=== PATIENT | male | born 1945 | race Asian ===

== ENCOUNTER 2016-12-17 17:15 | Inpatient (IN) | payer OTHER ==
[~2016-12-17] VITALS: Ht 170.2 cm; Wt 78.9 kg
[2016-12-17 21:25] LABS: BASOPHIL % 0.3 % (0-2); PLATELET COUNT 236 x10^3mcL (130-400); RED CELL DISTRIBUTION WIDTH 13.7 % (11.5-14.5)
[2016-12-17 21:33] LABS: ALKALINE PHOSPHATASE 125 U/L (46-116); ALT/SGPT 22 U/L (16-63); AST/SGOT 32 U/L (15-37); BILIRUBIN TOTAL 0.73 mg/dL (0.20-1.00); CALCIUM 9.7 mg/dL (8.5-10.1); CARBON DIOXIDE 29.4 mmol/L (21-32); CHLORIDE SERUM 92 mmol/L (98-107); GLUCOSE SERUM 121 mg/dL (74-106); POTASSIUM SERUM 5.5 mmol/L (3.5-5.1); SODIUM SERUM 131 mmol/L (136-145)
[2016-12-17 21:36] LABS: TOTAL PROTEIN, SERUM 8.8 g/dL (6.4-8.2)
[2016-12-17 21:37] LABS: CREATININE SERUM 4.4 mg/dL (0.7-1.3)
[2016-12-18 02:12] LABS: PHOSPHOROUS 5.1 mg/dL (2.5-4.9)
[2016-12-18 02:31] LABS: FREE T4 1.08 ng/dL (0.76-1.46); FREE THYROXINE INDEX 2.6 ug/dL (1.4-4.5); T4(THYROXINE) 7.3 ug/dL (4.7-13.3)
[2016-12-18 02:36] VITALS: BP 148/94
[2016-12-18 04:18] LABS: T3 TOTAL 0.36 ng/mL
[2016-12-18 06:25] VITALS: BP 116/72
[2016-12-18 06:41] LABS: microscopic required? YES; urine erythrocyte 3+ (NEGATIVE)
[2016-12-18 06:57] LABS: AMPHETAMINE QUAL UR NONE DETECTED (NEG <=1000)
[2016-12-18 07:17] LABS: BASOPHIL % 0.1 % (0-2); PLATELET COUNT 226 x10^3mcL (130-400); RED CELL DISTRIBUTION WIDTH 13.8 % (11.5-14.5)
[2016-12-18 07:50] LABS: CALCIUM 9.6 mg/dL (8.5-10.1); CARBON DIOXIDE 22.8 mmol/L (21-32); CHLORIDE SERUM 92 mmol/L (98-107); GLUCOSE SERUM 165 mg/dL (74-106); POTASSIUM SERUM 5.1 mmol/L (3.5-5.1); SODIUM SERUM 129 mmol/L (136-145)
[2016-12-18 07:57] LABS: CREATININE SERUM 4.2 mg/dL (0.7-1.3)
[2016-12-18 09:33] VITALS: BP 122/72
[2016-12-18 13:34] VITALS: BP 127/82
[2016-12-18 17:27] LABS: CALCIUM 8.8 mg/dL (8.5-10.1); CARBON DIOXIDE 24.9 mmol/L (21-32); CHLORIDE SERUM 92 mmol/L (98-107); GLUCOSE SERUM 164 mg/dL (74-106); POTASSIUM SERUM 4.1 mmol/L (3.5-5.1); SODIUM SERUM 129 mmol/L (136-145)
[2016-12-18 17:29] LABS: CREATININE SERUM 4.1 mg/dL (0.7-1.3)
[2016-12-18 19:15] VITALS: BP 138/99
== END 2016-12-19 00:05 | disposition short-term general hospital (02) | DRG 44 ==
LOC: ED 17:15 → DU 22:35 → IC 12-18 16:52 → DU 12-18 19:21 → IC 12-18 19:22 → DU 12-18 19:29 → IC 12-18 19:30
PROVIDERS: Emergency Medicine Emergency Medical Services; Family Medicine Sports Medicine; ADMIT Family Medicine
PROC: 30233L1 Transfusion of Nonautologous Fresh Plasma into Peripheral Vein, Percutaneous Approach (ICD-10-PCS; principal; 2016-12-18)
PROC: 30233K1 Transfusion of Nonautologous Frozen Plasma into Peripheral Vein, Percutaneous Approach (ICD-10-PCS; 2016-12-18)
DX: I60.9 Nontraumatic subarachnoid hemorrhage, unspecified (principal); N17.0 Acute kidney failure with tubular necrosis; E11.9 Type 2 diabetes mellitus without complications; E78.5 Hyperlipidemia, unspecified; E87.5 Hyperkalemia; E87.1 Hypo-osmolality and hyponatremia; E87.8 Other disorders of electrolyte and fluid balance, not elsewhere classified; R33.9 Retention of urine, unspecified
CPT/HCPCS: 82962; 83880; 84439; J1170; J2270; J2405; J3430; J3490; J7030; P9059; Q0092

== ENCOUNTER 2017-01-23 23:04 | Inpatient (IN) | payer OTHER ==
[2017-01-23] VITALS: BP 122/84
[~2017-01-23] VITALS: Ht 170.2 cm; Wt 95.0 kg
[2017-01-23 23:15] VITALS: BP 198/144
[2017-01-23] MEDS ORDERED: CARVEDILOL12.5 M1 PO (23:58)
[2017-01-23] MEDS ORDERED: KEPPRA500 MG PO (23:59)
[2017-01-23] MEDS ORDERED: ISOSORBIDE MONO30 MG PO (23:59)
[2017-01-23] MEDS ORDERED: FLO4 PO (23:59)
[2017-01-24] VITALS (24 sets, daily range): BP systolic 95–172; BP diastolic 68–104
[2017-01-24] MEDS ORDERED: ATORVASTATIN CA80 M1 PO
[2017-01-24] MEDS ORDERED: ISOSORBIDE DINI20 MG PO
[2017-01-24] MEDS ORDERED: NOR10T PO (00:01)
[2017-01-24] MEDS ORDERED: NORCO1 TA1 PO (00:01)
[2017-01-24 00:09] LABS: BASOPHIL % 0.4 % (0-2); PLATELET COUNT 241 x10^3mcL (130-400)
[2017-01-24 00:18] LABS: UA SPECIFIC GRAVITY >=1.030 (1.005-1.035); microscopic required? YES; urine erythrocyte 2+ (NEGATIVE)
[2017-01-24 00:18] LABS: CALCIUM 7.9 mg/dL (8.5-10.1); CARBON DIOXIDE 28.6 mmol/L (21-32); CHLORIDE SERUM 102 mmol/L (98-107); GLUCOSE SERUM 150 mg/dL (74-106); POTASSIUM SERUM 4.9 mmol/L (3.5-5.1); SODIUM SERUM 138 mmol/L (136-145)
[2017-01-24 00:28] LABS: ALKALINE PHOSPHATASE 98 U/L (46-116); ALT/SGPT 51 U/L (16-63); AST/SGOT 49 U/L (15-37); BILIRUBIN TOTAL 0.3 mg/dL (0.20-1.00); TOTAL PROTEIN, SERUM 7.1 g/dL (6.4-8.2)
[2017-01-24 00:29] LABS: ALBUMIN 3.1 g/dL (3.4-5.0); CHOLESTEROL 119 mg/dL (<200); HDL CHOLESTEROL 32 mg/dL (40-60)
[2017-01-24 02:00] LABS: MAGNESIUM 1.7 mg/dL (1.8-2.4); PHOSPHOROUS 4.3 mg/dL (2.5-4.9)
[2017-01-24 02:01] LABS: CHOLESTEROL/HDL RATIO 3.6
[2017-01-24 02:08] LABS: FREE T4 1.01 ng/dL (0.76-1.46); FREE THYROXINE INDEX 2.2 ug/dL (1.4-4.5); T3 TOTAL 0.79 ng/mL; T4(THYROXINE) 6.2 ug/dL (4.7-13.3)
[2017-01-24 05:36] LABS: AMPHETAMINE QUAL UR POSITIVE (NEG <=1000)
[2017-01-24 05:42] LABS: RED BLOOD CELLS 3.35 M/mm3 (4.52-5.90)
[2017-01-24 05:43] LABS: CALCIUM 8.3 mg/dL (8.5-10.1); CARBON DIOXIDE 25.8 mmol/L (21-32); CHLORIDE SERUM 106 mmol/L (98-107); CREATININE SERUM 1.9 mg/dL (0.7-1.3); GLUCOSE SERUM 106 mg/dL (74-106); MAGNESIUM 2.4 mg/dL (1.8-2.4); PHOSPHOROUS 2.7 mg/dL (2.5-4.9); POTASSIUM SERUM 3.3 mmol/L (3.5-5.1); SODIUM SERUM 140 mmol/L (136-145)
[2017-01-24 07:52] LABS: BASOPHIL % 0.5 % (0-2); PLATELET COUNT 187 x10^3mcL (130-400)
[2017-01-24 07:53] LABS: RED CELL DISTRIBUTION WIDTH 16.8 % (11.5-14.5)
[2017-01-24 10:22] LABS: IRON 52 ug/dL (65-170); TOTAL IRON BINDING CAPACITY 275 ug/dL (250-450)
[2017-01-24 14:45] LABS: AMPHETAMINE QUAL UR NONE DETECTED (NEG <=1000)
[2017-01-25] VITALS (18 sets, daily range): BP systolic 62–115; BP diastolic 48–76
[2017-01-25 05:20] LABS: BASOPHIL % 0.5 % (0-2); PLATELET COUNT 188 x10^3mcL (130-400); RED CELL DISTRIBUTION WIDTH 17.5 % (11.5-14.5)
[2017-01-25 05:34] LABS: CALCIUM 7.7 mg/dL (8.5-10.1); CARBON DIOXIDE 27.7 mmol/L (21-32); CHLORIDE SERUM 108 mmol/L (98-107); CREATININE SERUM 2.3 mg/dL (0.7-1.3); GLUCOSE SERUM 82 mg/dL (74-106); MAGNESIUM 1.9 mg/dL (1.8-2.4); PHOSPHOROUS 3.8 mg/dL (2.5-4.9); POTASSIUM SERUM 3.7 mmol/L (3.5-5.1); SODIUM SERUM 142 mmol/L (136-145)
[2017-01-26] VITALS (17 sets, daily range): BP systolic 80–136; BP diastolic 54–85
[2017-01-26 03:34] LABS: BASOPHIL % 1.3 % (0-2); PLATELET COUNT 185 x10^3mcL (130-400); RED CELL DISTRIBUTION WIDTH 17.6 % (11.5-14.5)
[2017-01-26 03:39] LABS: CALCIUM 7.9 mg/dL (8.5-10.1); CARBON DIOXIDE 24.7 mmol/L (21-32); CHLORIDE SERUM 105 mmol/L (98-107); CREATININE SERUM 3.6 mg/dL (0.7-1.3); GLUCOSE SERUM 87 mg/dL (74-106); MAGNESIUM 2.4 mg/dL (1.8-2.4); PHOSPHOROUS 5.1 mg/dL (2.5-4.9); POTASSIUM SERUM 4.2 mmol/L (3.5-5.1); SODIUM SERUM 139 mmol/L (136-145)
[2017-01-26 07:30] LABS: IRON 13 ug/dL (65-170); TOTAL IRON BINDING CAPACITY 148 ug/dL (250-450)
[2017-01-26 08:21] LABS: RED BLOOD CELLS 3.48 M/mm3 (4.52-5.90)
[2017-01-27] VITALS (15 sets, daily range): BP systolic 79–182; BP diastolic 43–84
[2017-01-27 05:03] LABS: BASOPHIL % 0.5 % (0-2); PLATELET COUNT 169 x10^3mcL (130-400)
[2017-01-27 05:13] LABS: CALCIUM 7.8 mg/dL (8.5-10.1); CARBON DIOXIDE 24.9 mmol/L (21-32); CHLORIDE SERUM 106 mmol/L (98-107); GLUCOSE SERUM 106 mg/dL (74-106); MAGNESIUM 2.4 mg/dL (1.8-2.4); PHOSPHOROUS 5.1 mg/dL (2.5-4.9); SODIUM SERUM 140 mmol/L (136-145)
[2017-01-27 05:15] LABS: CREATININE SERUM 4.2 mg/dL (0.7-1.3)
[2017-01-28] VITALS (14 sets, daily range): BP systolic 87–150; BP diastolic 58–115
[2017-01-28 05:32] LABS: BASOPHIL % 0.3 % (0-2); PLATELET COUNT 186 x10^3mcL (130-400)
[2017-01-28 05:36] LABS: RED CELL DISTRIBUTION WIDTH 17.3 % (11.5-14.5)
[2017-01-28 05:42] LABS: CALCIUM 8.2 mg/dL (8.5-10.1); CARBON DIOXIDE 23.2 mmol/L (21-32); CHLORIDE SERUM 106 mmol/L (98-107); GLUCOSE SERUM 128 mg/dL (74-106); MAGNESIUM 2.4 mg/dL (1.8-2.4); PHOSPHOROUS 4.5 mg/dL (2.5-4.9); POTASSIUM SERUM 4.3 mmol/L (3.5-5.1); SODIUM SERUM 138 mmol/L (136-145)
[2017-01-29] VITALS (19 sets, daily range): BP systolic 82–168; BP diastolic 52–104
[2017-01-29 05:18] LABS: BASOPHIL % 0.6 % (0-2); PLATELET COUNT 174 x10^3mcL (130-400)
[2017-01-29 05:25] LABS: RED CELL DISTRIBUTION WIDTH 17.4 % (11.5-14.5)
[2017-01-29 05:27] LABS: CALCIUM 8.1 mg/dL (8.5-10.1); CARBON DIOXIDE 24.7 mmol/L (21-32); CHLORIDE SERUM 107 mmol/L (98-107); CREATININE SERUM 3.5 mg/dL (0.7-1.3); GLUCOSE SERUM 113 mg/dL (74-106); MAGNESIUM 2.2 mg/dL (1.8-2.4); PHOSPHOROUS 4.3 mg/dL (2.5-4.9); POTASSIUM SERUM 4.6 mmol/L (3.5-5.1); SODIUM SERUM 141 mmol/L (136-145)
[2017-01-29 05:38] LABS: IRON 18 ug/dL (65-170); TOTAL IRON BINDING CAPACITY 160 ug/dL (250-450)
[2017-01-29 09:13] LABS: BILIRUBIN DIRECT 0.24 mg/dL (0.0-0.2); BILIRUBIN TOTAL 0.4 mg/dL (0.20-1.00)
[2017-01-29 09:16] LABS: ALBUMIN 2.1 g/dL (3.4-5.0); TOTAL PROTEIN, SERUM 6.1 g/dL (6.4-8.2)
[2017-01-29 18:53] LABS: BASOPHIL % 0.4 % (0-2); PLATELET COUNT 176 x10^3mcL (130-400); RED CELL DISTRIBUTION WIDTH 16.7 % (11.5-14.5)
[2017-01-29 19:07] LABS: ALKALINE PHOSPHATASE 63 U/L (46-116); ALT/SGPT 26 U/L (16-63); AST/SGOT 39 U/L (15-37); BILIRUBIN TOTAL 0.32 mg/dL (0.20-1.00); CALCIUM 8.3 mg/dL (8.5-10.1); CARBON DIOXIDE 25.6 mmol/L (21-32); CHLORIDE SERUM 106 mmol/L (98-107); CREATININE SERUM 3.4 mg/dL (0.7-1.3); GLUCOSE SERUM 139 mg/dL (74-106); POTASSIUM SERUM 4.5 mmol/L (3.5-5.1); SODIUM SERUM 139 mmol/L (136-145); TOTAL PROTEIN, SERUM 6.3 g/dL (6.4-8.2)
[2017-01-29 19:08] LABS: ALBUMIN 2.1 g/dL (3.4-5.0)
[2017-01-30] VITALS (18 sets, daily range): BP systolic 71–161; BP diastolic 53–104
[2017-01-30 09:33] LABS: BASOPHIL % 0.6 % (0-2); PLATELET COUNT 195 x10^3mcL (130-400)
[2017-01-30 09:40] LABS: RED CELL DISTRIBUTION WIDTH 17.1 % (11.5-14.5)
[2017-01-30 09:51] LABS: CALCIUM 8.4 mg/dL (8.5-10.1); CARBON DIOXIDE 23.2 mmol/L (21-32); CHLORIDE SERUM 107 mmol/L (98-107); CREATININE SERUM 3.2 mg/dL (0.7-1.3); GLUCOSE SERUM 131 mg/dL (74-106); MAGNESIUM 2.3 mg/dL (1.8-2.4); PHOSPHOROUS 4.4 mg/dL (2.5-4.9); POTASSIUM SERUM 4.6 mmol/L (3.5-5.1); SODIUM SERUM 138 mmol/L (136-145)
[2017-01-31] VITALS (12 sets, daily range): BP systolic 83–141; BP diastolic 48–95
[2017-01-31 05:25] LABS: BASOPHIL % 0.8 % (0-2); PLATELET COUNT 200 x10^3mcL (130-400)
[2017-01-31 05:26] LABS: RED CELL DISTRIBUTION WIDTH 16.8 % (11.5-14.5)
[2017-01-31 05:34] LABS: CALCIUM 8.5 mg/dL (8.5-10.1); CARBON DIOXIDE 26.1 mmol/L (21-32); CHLORIDE SERUM 105 mmol/L (98-107); CREATININE SERUM 3.3 mg/dL (0.7-1.3); GLUCOSE SERUM 134 mg/dL (74-106); MAGNESIUM 2.2 mg/dL (1.8-2.4); PHOSPHOROUS 4.2 mg/dL (2.5-4.9); POTASSIUM SERUM 4.7 mmol/L (3.5-5.1); SODIUM SERUM 138 mmol/L (136-145)
[2017-02-01] VITALS (7 sets, daily range): BP systolic 81–125; BP diastolic 61–83
[2017-02-01 05:40] LABS: BASOPHIL % 0.8 % (0-2); PLATELET COUNT 215 x10^3mcL (130-400); RED CELL DISTRIBUTION WIDTH 17.1 % (11.5-14.5)
[2017-02-01 05:45] LABS: CALCIUM 8.8 mg/dL (8.5-10.1); CARBON DIOXIDE 22.8 mmol/L (21-32); CHLORIDE SERUM 108 mmol/L (98-107); GLUCOSE SERUM 117 mg/dL (74-106); MAGNESIUM 2.2 mg/dL (1.8-2.4); POTASSIUM SERUM 4.6 mmol/L (3.5-5.1); SODIUM SERUM 141 mmol/L (136-145)
[2017-02-02 03:05] VITALS: BP 113/88
[2017-02-02 05:20] LABS: BASOPHIL % 1.1 % (0-2); PLATELET COUNT 218 x10^3mcL (130-400)
[2017-02-02 05:37] LABS: CALCIUM 8.6 mg/dL (8.5-10.1); CARBON DIOXIDE 23.3 mmol/L (21-32); CHLORIDE SERUM 108 mmol/L (98-107); CREATININE SERUM 3.1 mg/dL (0.7-1.3); GLUCOSE SERUM 113 mg/dL (74-106); MAGNESIUM 2.2 mg/dL (1.8-2.4); PHOSPHOROUS 4.1 mg/dL (2.5-4.9); POTASSIUM SERUM 4.1 mmol/L (3.5-5.1); SODIUM SERUM 142 mmol/L (136-145)
[2017-02-02 07:30] VITALS: BP 101/76
[2017-02-02 12:30] VITALS: BP 159/89
[2017-02-02 15:55] VITALS: BP 92/78
[2017-02-02 19:30] VITALS: BP 133/83
[2017-02-02 23:25] VITALS: BP 104/75
[2017-02-03 03:25] VITALS: BP 113/82
[2017-02-03 05:40] LABS: BASOPHIL % 0.5 % (0-2); PLATELET COUNT 262 x10^3mcL (130-400); RED CELL DISTRIBUTION WIDTH 17.2 % (11.5-14.5)
[2017-02-03 05:49] LABS: CALCIUM 9.5 mg/dL (8.5-10.1); CARBON DIOXIDE 21.1 mmol/L (21-32); CHLORIDE SERUM 108 mmol/L (98-107); CREATININE SERUM 3.4 mg/dL (0.7-1.3); GLUCOSE SERUM 129 mg/dL (74-106); MAGNESIUM 2.4 mg/dL (1.8-2.4); PHOSPHOROUS 4.7 mg/dL (2.5-4.9); POTASSIUM SERUM 4.7 mmol/L (3.5-5.1); SODIUM SERUM 143 mmol/L (136-145)
[2017-02-03 11:48] VITALS: BP 137/72
[2017-02-03 16:00] VITALS: BP 105/65
[2017-02-03 19:40] VITALS: BP 86/60
[2017-02-03 23:00] VITALS: BP 89/76
[2017-02-04 03:05] VITALS: BP 80/62
[2017-02-04 05:30] LABS: BASOPHIL % 0.3 % (0-2); PLATELET COUNT 213 x10^3mcL (130-400)
[2017-02-04 05:39] LABS: CALCIUM 8.9 mg/dL (8.5-10.1); CARBON DIOXIDE 24.7 mmol/L (21-32); CHLORIDE SERUM 107 mmol/L (98-107); CREATININE SERUM 3.9 mg/dL (0.7-1.3); GLUCOSE SERUM 166 mg/dL (74-106); MAGNESIUM 2.5 mg/dL (1.8-2.4); PHOSPHOROUS 4.4 mg/dL (2.5-4.9); POTASSIUM SERUM 4.3 mmol/L (3.5-5.1); SODIUM SERUM 141 mmol/L (136-145)
[2017-02-04 05:42] LABS: RED CELL DISTRIBUTION WIDTH 17.1 % (11.5-14.5)
[2017-02-04 07:30] VITALS: BP 117/92
[2017-02-04 08:19] VITALS: Ht 170.2 cm; Wt 95.0 kg
[2017-02-04 12:17] VITALS: BP 97/98
[2017-02-04 16:06] VITALS: BP 117/80
[2017-02-04 20:30] VITALS: BP 103/76
[2017-02-05 06:01] VITALS: BP 79/59
[2017-02-05 06:08] LABS: BASOPHIL % 0.4 % (0-2); PLATELET COUNT 202 x10^3mcL (130-400)
[2017-02-05 06:26] LABS: CALCIUM 8.8 mg/dL (8.5-10.1); CARBON DIOXIDE 27.5 mmol/L (21-32); CHLORIDE SERUM 108 mmol/L (98-107); GLUCOSE SERUM 96 mg/dL (74-106); MAGNESIUM 2.5 mg/dL (1.8-2.4); PHOSPHOROUS 6.1 mg/dL (2.5-4.9); POTASSIUM SERUM 4.7 mmol/L (3.5-5.1); SODIUM SERUM 144 mmol/L (136-145)
[2017-02-05 07:07] LABS: RED CELL DISTRIBUTION WIDTH 17.6 % (11.5-14.5)
[2017-02-05 07:19] LABS: CREATININE SERUM 4.5 mg/dL (0.7-1.3)
== END 2017-02-05 13:10 | disposition expired | DRG 130 ==
LOC: ED 23:04 → IC 01-24 01:03 → DU 02-04 20:21 → IC 02-04 20:38 → DU 02-04 21:02 → IC 02-04 21:38 → MU 02-04 22:15 → DU 02-04 23:10
PROVIDERS: Emergency Medicine; Family Medicine; Family Medicine Sports Medicine; Internal Medicine Interventional Cardiology; Internal Medicine Nephrology; Student in an Organized Health Care Education/Training Program; ADMIT Student in an Organized Health Care Education/Training Program
PROC: 5A1955Z Respiratory Ventilation, Greater than 96 Consecutive Hours (ICD-10-PCS; principal; 2017-01-24)
PROC: 0BH17EZ Insertion of Endotracheal Airway into Trachea, Via Natural or Artificial Opening (ICD-10-PCS; 2017-01-24)
PROC: 05HM33Z Insertion of Infusion Device into Right Internal Jugular Vein, Percutaneous Approach (ICD-10-PCS; 2017-01-24)
PROC: B543ZZA Ultrasonography of Right Jugular Veins, Guidance (ICD-10-PCS; 2017-01-24)
DX: J96.01 Acute respiratory failure with hypoxia (principal); I21.A1 Myocardial infarction type 2; N17.0 Acute kidney failure with tubular necrosis; J69.0 Pneumonitis due to inhalation of food and vomit; I50.43 Acute on chronic combined systolic (congestive) and diastolic (congestive) heart failure; D68.69 Other thrombophilia; E11.22 Type 2 diabetes mellitus with diabetic chronic kidney disease; E44.0 Moderate protein-calorie malnutrition; I48.0 Paroxysmal atrial fibrillation; E11.65 Type 2 diabetes mellitus with hyperglycemia; E83.42 Hypomagnesemia; E87.6 Hypokalemia; E83.39 Other disorders of phosphorus metabolism; R80.9 Proteinuria, unspecified; N40.0 Benign prostatic hyperplasia without lower urinary tract symptoms; E83.51 Hypocalcemia; R74.0 Nonspecific elevation of levels of transaminase and lactic acid dehydrogenase [LDH]; E02 Subclinical iodine-deficiency hypothyroidism; E78.5 Hyperlipidemia, unspecified; G40.909 Epilepsy, unspecified, not intractable, without status epilepticus; Z68.31 Body mass index [BMI] 31.0-31.9, adult; Z87.891 Personal history of nicotine dependence; Z86.73 Personal history of transient ischemic attack (TIA), and cerebral infarction without residual deficits; D64.9 Anemia, unspecified; I16.0 Hypertensive urgency; I13.0 Hypertensive heart and chronic kidney disease with heart failure and stage 1 through stage 4 chronic kidney disease, or unspecified chronic kidney disease; N18.9 Chronic kidney disease, unspecified; E66.9 Obesity, unspecified
CPT/HCPCS: 31500; 36556; 36600; 82962; 83880; 84439; 92610; 97110-GP; 97530-GP; A4628; J0282; J0330; J0696; J1642; J1885; J1940; J1956; J2060; J2270; J2543; J2704; J2765; J3475; J3480; J3490; J7030; J7040; J7060; J7620; Q0092